=== PATIENT | female | born 1980 | race Caucasian/White ===

== ENCOUNTER 2016-12-22 17:04 | Outpatient (CLI) | payer OTHER ==
[~2016-12-22 17:04] MED LIST: [UNRECOGNIZED DRUG - REMARK]
[2016-12-22 17:44] LABS: BASOPHILS % (AUTO) 0.1 % (0.0-2.0); EOSINOPHILS # (AUTO) 0.1 K/uL (0.0-0.4); EOSINOPHILS % (AUTO) 1.4 % (0.0-4.0); HEMOGLOBIN 12.7 g/dL (12.0-16.0); LYMPHOCYTES # (AUTO) 1.7 K/uL (1.0-5.5); LYMPHOCYTES % (AUTO) 18.2 % (20.5-51.5); MEAN CORPUSCULAR HEMOGLOBIN 31 pg (27-31); MEAN CORPUSCULAR HGB CONC 35 % (32-36); MEAN CORPUSCULAR VOLUME 89 fL (79.0-98.0); MONOCYTES # (AUTO) 0.4 K/uL (0.0-1.0); MONOCYTES % (AUTO) 4.3 % (1.7-9.3); NEUTROPHILS # (AUTO) 6.9 K/uL (1.8-7.7); PLATELET COUNT (AUTO) 235 K/uL (130-430); RED BLOOD CELL COUNT(AUTO) 4.05 MIL/uL (4.2-6.2); WHITE BLOOD COUNT (AUTO) 9.1 K/uL (4.8-10.8)
[2016-12-25 14:56] LABS: HEPATITIS B SURFACE AG Negative (Negative)
[2016-12-25 14:59] LABS: RUBELLA AB, IgG 2.23 IU/ml (>9); RUBELLA AB, IgM <20.0 (Negative)
== END 2016-12-22 18:57 | disposition home or self-care (01) ==
LOC: SLB 17:04
PROVIDERS: ATTEND Specialist
DX: Z34.91 Encounter for supervision of normal pregnancy, unspecified, first trimester (principal); Z3A.00 Weeks of gestation of pregnancy not specified
CPT/HCPCS: 36415; 84443-TC; 85025; 86762; 86886; 86900; 86901; 87340

== ENCOUNTER 2017-03-30 08:30 | Outpatient (CLI) | payer OTHER ==
[2017-03-30 10:36] LABS: BASOPHILS % (AUTO) 0.3 % (0.0-2.0); EOSINOPHILS # (AUTO) 0.2 K/uL (0.0-0.4); EOSINOPHILS % (AUTO) 1.3 % (0.0-4.0); HEMATOCRIT 36.4 % (36-48); HEMOGLOBIN 12.2 g/dL (12.0-16.0); LYMPHOCYTES % (AUTO) 16.2 % (20.5-51.5); MEAN CORPUSCULAR HEMOGLOBIN 31 pg (27-31); MEAN CORPUSCULAR HGB CONC 34 % (32-36); MEAN CORPUSCULAR VOLUME 92 fL (79.0-98.0); MONOCYTES # (AUTO) 0.6 K/uL (0.0-1.0); MONOCYTES % (AUTO) 4.5 % (1.7-9.3); NEUTROPHILS # (AUTO) 9.4 K/uL (1.8-7.7); NEUTROPHILS % (AUTO) 77.7 % (40.0-70.0); PLATELET COUNT (AUTO) 254 K/uL (130-430); RED BLOOD CELL COUNT(AUTO) 3.97 MIL/uL (4.2-6.2); RED CELL DISTRIBUTION WIDTH 11.6 % (9.0-15.0); WHITE BLOOD COUNT (AUTO) 12.2 K/uL (4.8-10.8)
== END 2017-03-30 18:15 | disposition home or self-care (01) ==
LOC: SLB 08:30
PROVIDERS: ATTEND Specialist
DX: Z34.01 Encounter for supervision of normal first pregnancy, first trimester (principal)
CPT/HCPCS: 36415; 85025; 86592

== ENCOUNTER 2017-06-08 17:47 | Inpatient (IN) | payer OTHER ==
[~2017-06-08] VITALS: Ht 157.5 cm; Wt 90.3 kg
[2017-06-08] MEDS ORDERED: CEFAZOLIN 2 GM IVPB PREMIX 50 ML IV ONE (18:30)
[2017-06-08 19:03] LABS: HEMATOCRIT 33.5 % (36-48); HEMOGLOBIN 11.3 g/dL (12.0-16.0); MEAN CORPUSCULAR HEMOGLOBIN 30 pg (27-31); MEAN CORPUSCULAR HGB CONC 34 % (32-36); MEAN CORPUSCULAR VOLUME 89 fL (79.0-98.0); PLATELET COUNT (AUTO) 228 K/uL (130-430); RED BLOOD CELL COUNT(AUTO) 3.78 MIL/uL (4.2-6.2)
[2017-06-08 19:24] LABS: BILIRUBIN,URINE NEGATIVE (NEGATIVE); BLOOD, URINE NEGATIVE (NEGATIVE); CLARITY/URINE CLEAR (CLEAR); COLOR,URINE YELLOW (YELLOW); GLUCOSE,URINE NEGATIVE (NEGATIVE); KETONES,URINE NEGATIVE (NEGATIVE); LEUKOCYTE ESTERASE ,URINE NEGATIVE (NEGATIVE); NITRITE, URINE NEGATIVE (NEGATIVE); PROTEIN URINE NEGATIVE (NEGATIVE); UROBILINOGEN,URINE 0.2 (0.2-1.0)
[2017-06-08] MEDS ORDERED: CITRIC ACID/SODIUM CITRATE 30 ML UDC PO ONE (19:30)
[2017-06-08] MEDS: LR 1,000 ML IV SCH (19:40)
[2017-06-08] MEDS ORDERED: CITRIC ACID/SODIUM CITRATE 30 ML UDC ONE (19:44)
[2017-06-08 19:57] LABS: BAND % (MANUAL) 3 % (0-6); BASOPHILS % (MANUAL) 0 % (0-2); EOSINOPHILS % (MANUAL) 1 % (0-7); LYMPHOCYTES % (MANUAL) 8 % (20-46); MONOCYTES % (MANUAL) 6 % (0-11)
[2017-06-08] MEDS ORDERED: LR 1,000 ML IV SCH ×2 (20:30→21:04)
[2017-06-08] MEDS ORDERED: MEPERIDINE HCL/PF 25 MG/ML DISP.SYRIN IVP PRN ×2 (20:30)
[2017-06-08] MEDS ORDERED: KETOROLAC TROMETHAMINE 30 MG VIAL IVP PRN ×2 (20:30→20:45)
[2017-06-08] MEDS ORDERED: HYDROmorphone 2 MG/ML VIAL IVP PRN ×2 (20:30)
[2017-06-08] MEDS ORDERED: ePHEDrine sulfate 50 MG/ML VIAL IVP PRN (20:30)
[2017-06-08] MEDS ORDERED: HYDROmorphone 1 MG INJ. 1 MG/ML AMPUL IVP PRN ×2 (20:30→20:45)
[2017-06-08] MEDS ORDERED: ONDANSETRON HCL 4 MG/2 ML VIAL IVP PRN ×2 (20:30→20:45)
[2017-06-08] MEDS ORDERED: MORPHINE SULFATE 10MG/10ML PF AMP SP SCH (20:45)
[2017-06-08] MEDS ORDERED: DIPHENHYDRAMINE INJ 50 MG/ML VIAL IVP PRN (20:45)
[2017-06-08] MEDS ORDERED: NALOXONE HCL 0.4 MG/ML AMP (NARCAN) IVP PRN (20:45)
[2017-06-08] MEDS ORDERED: NALBUPHINE HCL 10 MG/ML AMP IVP PRN (20:45)
[2017-06-08] MEDS ORDERED: TEMAZEPAM 15 MG CAPSULE PO PRN (21:00)
[2017-06-08] MEDS ORDERED: OXYTOCIN/NORMAL SALINE 1,000 ML IV ONE (21:04)
[2017-06-08] MEDS ORDERED: MEASLES,MUMPS&RUBELLA VACC/PF 12500 UNIT/0.5 ML VIAL SUBQ PRN (21:15)
[2017-06-08] MEDS ORDERED: SENNOSIDES/DOCUSATE SODIUM 1 TAB TABLET(SENOKOT-S) PO PRN (21:15)
[2017-06-08] MEDS ORDERED: ANUSOL 1 EA SUPP.RECT (PREPARATION H) RC PRN (21:15)
[2017-06-08] MEDS ORDERED: LANOLIN 7 GM OINT. TP PRN (21:15)
[2017-06-08] MEDS ORDERED: OXYCODONE/ACETAMINOPHEN 5-325 TABLET PO PRN (21:15)
[2017-06-08] MEDS ORDERED: BISACODYL 10 MG/SUPPOSITORY RC PRN (21:15)
[2017-06-08] MEDS ORDERED: HYDROcodone/ACETAMIN 5-325 MG TAB (NORCO/ VICODIN) PO PRN (21:15)
[2017-06-08] MEDS ORDERED: RHO(D) IMMUNE GLOBULIN/MALTOSE 1500 UNITS/1.3 ML (WINHRO) IM PRN (21:15)
[2017-06-09 01:55] VITALS: BP_SYST 123
[2017-06-09] MEDS: CEFAZOLIN 1 GM IVPB PREMIX 50 ML IV SCH ×3 (02:30→14:40)
[2017-06-09] MEDS: LR 1,000 ML IV SCH (04:00)
[2017-06-09] MEDS: KETOROLAC TROMETHAMINE 30 MG VIAL IVP SCH ×3 (07:09→18:35)
[2017-06-09 07:46] LABS: BASOPHILS % (AUTO) 0.1 % (0.0-2.0); EOSINOPHILS % (AUTO) 0.3 % (0.0-4.0); HEMATOCRIT 29.3 % (36-48); HEMOGLOBIN 9.9 g/dL (12.0-16.0); LYMPHOCYTES # (AUTO) 1.4 K/uL (1.0-5.5); LYMPHOCYTES % (AUTO) 10.3 % (20.5-51.5); MEAN CORPUSCULAR HEMOGLOBIN 30 pg (27-31); MEAN CORPUSCULAR HGB CONC 34 % (32-36); MEAN CORPUSCULAR VOLUME 90 fL (79.0-98.0); MONOCYTES # (AUTO) 0.6 K/uL (0.0-1.0); MONOCYTES % (AUTO) 4.5 % (1.7-9.3); NEUTROPHILS # (AUTO) 11.4 K/uL (1.8-7.7); NEUTROPHILS % (AUTO) 84.8 % (40.0-70.0); PLATELET COUNT (AUTO) 205 K/uL (130-430); RED BLOOD CELL COUNT(AUTO) 3.27 MIL/uL (4.2-6.2); RED CELL DISTRIBUTION WIDTH 12.1 % (9.0-15.0); WHITE BLOOD COUNT (AUTO) 13.4 K/uL (4.8-10.8)
[2017-06-09] MEDS: DOCUSATE SODIUM 100 MG CAPSULE PO PRN ×2 (13:09→23:38)
[2017-06-09] MEDS: SIMETHICONE 80 MG TAB.CHEW PO PRN ×2 (13:10→23:58)
[2017-06-09] MEDS: IBUPROFEN 600 MG TABLET PO SCH (23:38)
[2017-06-10] MEDS: IBUPROFEN 600 MG TABLET PO SCH ×3 (05:35→17:54)
[2017-06-10] MEDS: OXYCODONE/ACETAMINOPHEN 5-325 TABLET PO PRN ×3 (08:57→22:39)
[2017-06-11] MEDS: OXYCODONE/ACETAMINOPHEN 5-325 TABLET PO PRN ×3 (03:14→15:18)
[2017-06-11] MEDS: IBUPROFEN 600 MG TABLET PO SCH ×3 (06:00→12:49)
== END 2017-06-11 18:15 | disposition home or self-care (01) | DRG 765 ==
LOC: SPU 17:47
PROVIDERS: ADMIT Specialist; ATTEND Specialist
PROC: 10D00Z1 Extraction of Products of Conception, Low, Open Approach (ICD-10-PCS; principal; 2017-06-08 18:30)
DX: O32.1XX0 Maternal care for breech presentation, not applicable or unspecified (principal); O41.03X0 Oligohydramnios, third trimester, not applicable or unspecified; O69.81X0 Labor and delivery complicated by cord around neck, without compression, not applicable or unspecified; Z37.0 Single live birth; Z3A.38 38 weeks gestation of pregnancy
CPT/HCPCS: 36415; 81003; 85007; 85025; 85027; 86592; 86886; 86900; 86901; 94760; J0690; J1885; J2590

== ENCOUNTER 2018-02-16 09:28 | Outpatient (CLI) | payer OTHER | END 2018-02-16 20:00 | disposition home or self-care (01) | LOC: SRD 09:28 | PROVIDERS: ATTEND Internal Medicine Infectious Disease | DX: D72.829 Elevated white blood cell count, unspecified (principal); J45.998 Other asthma | CPT/HCPCS: 78806; A9547 ==

== ENCOUNTER 2018-02-19 13:05 | Outpatient (CLI) | payer OTHER ==
[2018-02-19 14:02] LABS: FREE T4 (FREE THYROXINE) 0.6 ng/dL (0.6-1.6); THYROID STIMULATING HORMONE 3.42 uIu/mL (0.34-4.82)
[2018-02-20 08:06] LABS: TRIIODOTHYRONINE, FREE 2.7 pg/mL (2.0-4.4)
== END 2018-02-19 20:18 | disposition home or self-care (01) ==
LOC: SLB 13:05
PROVIDERS: ATTEND Family Medicine
DX: R53.82 Chronic fatigue, unspecified (principal)
CPT/HCPCS: 36415; 84439; 84443-TC; 84480; 84481

== ENCOUNTER 2018-03-09 18:16 | Emergency (ER) | payer OTHER ==
[~2018-03-09] VITALS: Ht 157.5 cm; Wt 77.6 kg
[2018-03-09 18:16] VITALS: BP_SYST 103
[2018-03-09] MEDS ORDERED: methylPREDNISolone SOD SUCC/PF 62.5 MG/ML VIAL IM ONE (18:45)
[2018-03-09 19:20] VITALS: BP_SYST 108
== END 2018-03-09 19:20 | disposition home or self-care (01) ==
LOC: SED 18:16
DX: J20.9 Acute bronchitis, unspecified (principal)
CPT/HCPCS: 81025; 96372; 99283; J2930

== ENCOUNTER 2018-03-10 08:24 | Outpatient (CLI) | payer OTHER ==
[2018-03-10] MEDS ORDERED: IOHEXOL 100 ML IV ONE (08:42)
[2018-03-10 09:06] LABS: BILIRUBIN,URINE NEGATIVE (NEGATIVE); CLARITY/URINE CLEAR (CLEAR); COLOR,URINE YELLOW (YELLOW); GLUCOSE,URINE NEGATIVE (NEGATIVE); KETONES,URINE NEGATIVE (NEGATIVE); LEUKOCYTE ESTERASE ,URINE NEGATIVE (NEGATIVE); NITRITE, URINE NEGATIVE (NEGATIVE); PROTEIN URINE NEGATIVE (NEGATIVE); UROBILINOGEN,URINE 0.2 (0.2-1.0)
[2018-03-10 09:09] LABS: BLOOD, URINE TRACE (NEGATIVE)
[2018-03-10 09:15] LABS: BACTERIA,URINE FEW /HPF (None Seen); RBC,URINE 0-3 /HPF (0-3); WBC,URINE 0-3 /HPF (0-3)
[2018-03-10 09:16] LABS: MUCUS,URINE 1+ /LPF (None Seen); YEAST,URINE Few /HPF (None Seen)
[2018-03-10 09:24] LABS: BASOPHILS % (AUTO) 0.2 % (0.0-2.0); EOSINOPHILS % (AUTO) 0.1 % (0.0-4.0); HEMATOCRIT 40.3 % (36-48); HEMOGLOBIN 13.7 g/dL (12.0-16.0); LYMPHOCYTES # (AUTO) 0.8 K/uL (1.0-5.5); LYMPHOCYTES % (AUTO) 6.2 % (20.5-51.5); MEAN CORPUSCULAR HEMOGLOBIN 31 pg (27-31); MEAN CORPUSCULAR HGB CONC 34 % (32-36); MEAN CORPUSCULAR VOLUME 91 fL (79.0-98.0); MONOCYTES # (AUTO) 0.2 K/uL (0.0-1.0); MONOCYTES % (AUTO) 1.7 % (1.7-9.3); NEUTROPHILS # (AUTO) 11.8 K/uL (1.8-7.7); NEUTROPHILS % (AUTO) 91.8 % (40.0-70.0); PLATELET COUNT (AUTO) 343 K/uL (130-430); RED BLOOD CELL COUNT(AUTO) 4.45 MIL/uL (4.2-6.2); RED CELL DISTRIBUTION WIDTH 11.9 % (9.0-15.0); WHITE BLOOD COUNT (AUTO) 12.8 K/uL (4.8-10.8)
[2018-03-10 09:48] LABS: ALBUMIN 3.9 g/dL (3.4-4.8); CALCIUM 9.6 mg/dL (8.4-11.0); CREATININE 0.68 mg/dL (0.55-1.30); POTASSIUM 4.1 mmol/L (3.5-5.1); THYROID STIMULATING HORMONE 1.26 uIu/mL (0.34-4.82); TOTAL BILIRUBIN 0.6 mg/dL (0.0-1.0)
[2018-03-11 05:07] LABS: TRIIODOTHYRONINE (T3) 75 ng/dL (71-180)
== END 2018-03-10 20:10 | disposition home or self-care (01) ==
LOC: SCT 08:24
PROVIDERS: ATTEND Family Medicine
DX: Z00.01 Encounter for general adult medical examination with abnormal findings (principal); R07.89 Other chest pain
CPT/HCPCS: 36415; 71046; 71260; 80053; 80061; 81000; 84443; 84480; 85025; 86713; 87086; Q9967

== ENCOUNTER 2020-09-21 08:51 | Emergency (ER) | payer BC, SELFPAY ==
[~2020-09-21] VITALS: Ht 160 cm; Wt 73.9 kg
[2020-09-21 09:13] VITALS: BP_SYST 109
--- NOTE | 2020-09-21 09:17 | NUR ---
AMBULATED TO BED 5
--- NOTE | 2020-09-21 09:20 | NUR ---
pt arrives w/ right breast pain 01/26. pt has been nursing for the past 6 months. Denies any fever, N/V.
--- NOTE | 2020-09-21 09:27 | NUR ---
ER at bedside examining patient.
[2020-09-21 09:34] VITALS: BP_SYST 109
--- NOTE | 2020-09-21 09:35 | NUR ---
Patient given written and verbal discharge instructions and verbalizes understanding. ER MD discussed with patient the results and treatment provided. Patient in stable condition. ID arm band removed. IV catheter removed intact and dressing applied, no active bleeding. Rx of MOTRIN AND KEFLEX given. Patient educated on pain management and to follow up with PMD. Pain Scale 3/10. Opportunity for questions provided and answered. Medication side effect fact sheet provided.
== END 2020-09-21 09:35 | disposition home or self-care (01) ==
LOC: SED 08:51
DX: N61.0 Mastitis without abscess (principal); J45.909 Unspecified asthma, uncomplicated
CPT/HCPCS: 99283